=== PATIENT | male | born 1995 | race Two or more races ===

== ENCOUNTER 2022-02-21 10:44 | Emergency (ER) | payer SELFPAY ==
[~2022-02-21] VITALS: Ht 172.7 cm; Wt 154.6 kg
[2022-02-21 11:33] VITALS: BP 140/72
== END 2022-02-21 17:46 | disposition left against medical advice (07) ==
LOC: M ED 10:44
DX: Z53.21 Procedure and treatment not carried out due to patient leaving prior to being seen by health care provider (principal)